=== PATIENT | female | born 1965 | race Caucasian/White ===

== ENCOUNTER 2020-12-13 17:43 | Observation (INO) | payer OTHER ==
[~2020-12-13] VITALS: Ht 170.2 cm; Wt 72.6 kg
[~2020-12-13 17:43] MED LIST: BACITRAYCIN PLU28 GM TP
[2020-12-13 18:24] LABS: HEMOGLOBIN 13.6 gm/dl (12.3-15.3); RED BLOOD COUNT 4.92 M/UL (4.00-5.10); WHITE BLOOD COUNT 8.9 K/UL (4.5-11.0)
[2020-12-13 18:37] LABS: BUN/CREATININE RATIO 15 (0-10)
[2020-12-14 04:39] LABS: BUN/CREATININE RATIO 18 (0-10)
== END 2020-12-15 12:02 | disposition home or self-care (01) ==
LOC: ER1 17:43 → MED SURG 4 19:16 → CDU 19:16 → MED SURG 4 12-14 14:48
PROVIDERS: Emergency Medicine; ADMIT Internal Medicine
DX: G92 Toxic encephalopathy (principal); I10 Essential (primary) hypertension; E78.5 Hyperlipidemia, unspecified; G89.29 Other chronic pain; M54.9 Dorsalgia, unspecified; M79.606 Pain in leg, unspecified; E05.80 Other thyrotoxicosis without thyrotoxic crisis or storm; Z20.822 Contact with and (suspected) exposure to COVID-19
CPT/HCPCS: 70450; 71045; 80053; 80307; 82140; 82550; 82553; 83690; 83735; 83874; 83880; 84100; 84439; 84443; 84484; 85025; 85730; 92526; 92610; 93005; 99285; G0378; G0480; U0002